=== PATIENT | male | born 1975 | race Caucasian/White ===

== ENCOUNTER 2021-10-28 12:52 | Outpatient (CLI) | payer OTHER | END 2021-10-28 12:53 | disposition home or self-care (01) | LOC: CSHMRI 12:52 | PROVIDERS: ATTEND Otolaryngology Plastic Surgery within the Head & Neck | DX: G51.0 Bell's palsy (principal); G52.8 Disorders of other specified cranial nerves; D49.2 Neoplasm of unspecified behavior of bone, soft tissue, and skin; H74.8X9 Other specified disorders of middle ear and mastoid, unspecified ear | CPT/HCPCS: 70553 ==

== ENCOUNTER 2022-12-15 12:41 | Outpatient (CLI) | payer OTHER | END 2022-12-15 12:42 | disposition home or self-care (01) | LOC: CSHMRI 12:41 | PROVIDERS: ATTEND Otolaryngology Plastic Surgery within the Head & Neck | DX: G51.0 Bell's palsy (principal); G58.8 Other specified mononeuropathies | CPT/HCPCS: 70553 ==